=== PATIENT | male | born 1950 | race Caucasian/White ===

== ENCOUNTER 2021-02-06 08:41 | Inpatient (IN) | payer OTHER ==
[~2021-02-06] VITALS: Ht 175.3 cm; Wt 124.4 kg
--- NOTE | ~2021-02-06 | EMS ---
[address] [address] EMS Patient Care Report Name: REMY GALVIN Room: [address] IN [facility]#: [id number] Admission: 02/06/21 Attend Phys: Reji Sprague Discharge: Date of : 52 Report #: [id number] THIS REPORT FOR: //name// Report Transmitted: 02/06/2021 13:08 EMS Care Summary [facility] Incident [id number] @ 02/06/2021 07:31 Incident Location [address] [place] [address] Patient REMY GALVIN Male, 70 Years 1950 Patient Address [address] [place] [address] Patient History Chronic Obstructive Pulmonary Disease (COPD),Diabetes,Hypertension (HTN),Morbid Obesity,Anxiety,Edema, Patient Allergies No known allergies, Patient Medications Atorvastatin, Omeprazole, Novolog, Furosemide, Pramipexole, Duloxetine, Gabapentin, Tylenol, Cyclobenzaprine, Carvedilol, Januvia, Chief Complaint I have been feeling weak Disposition Transported No Lights/[place] Dispatch Reason Sick Person Transported To [facility] Narrative Med 1 response requested to [address] [place] [address] for a possible stroke. Med 1 copied the call and began our response to the scene. We arrived on scene without [address] [place] [address] EMS Patient Care Report Name: REMY GALVIN Room: [place] [address] ADM [place] ..#: [id number] Admission: 02/06/21 Attend Phys: Reji Sprague Discharge: Date of : 52 Report #: [id number] incident. We were met at the ambulance by the caller. Patient was located sitting just inside the living room in a recliner. Patient alert with a GCS of 15. Patient stated that he's been week for a few days. His advised she believes he is having a stroke. When she asked him to stick out his tongue, it moved to the right. She also thought he was having slurred speech but that subsided prior to EMS arrival. Patient denied history of TIA or stroke. He was assessed on the stroke and MEND exam in which he was negative. Patient was noted to have edema and weeping to the lower legs. Patient stated that it increased in the few days prior. Vitals were assessed at his side. We requested fire to assist us in lifting the patient as he is not able to bare weight. Patient was moved to the stair chair where he was secured. He was then taken to the cot outside where he was moved over. He was covered and secured. He was placed into the ambulance. Vitals were monitored. 12 lead ECG obtained. IV access obtained in the right AC. We began our response to [place]'s non emergent. Patient was monitored with no acute changes in condition. Report called in to the ER via med radio 15 min prior. Upon arrival to the ER patient was taken inside and to ER 10 where he was moved. Report was given to the DR taking over care. Signatures were obtained and care was transferred. Med 1 cleared to return to service. Initial Vitals @08:33P: 110,R: 22,BP: 114/74,Pain: 2/10,GCS: 15,EtCO2: 44,SpO2: 98,Revised Trauma: 12, @07:43P: 104,R: 16,BP: 140/90,Pain: 2/10,GCS: 15,Glucose: 170,EtCO2: 40,SpO2: 97,Revised Trauma: 12, @08:18P: 115,R: 22,BP: 138/70,Pain: 2/10,GCS: 15,EtCO2: 40,SpO2: 96,Revised Trauma: 12, @08:08P: 118,R: 24,BP: 128/70,Pain: 2/10,GCS: 15,EtCO2: 33,SpO2: 96,Revised Trauma: 12, @08:00P: 78,R: 16,BP: 118/70,Pain: 2/10,GCS: 15,EtCO2: 38,SpO2: 97,Revised Trauma: 12, Assessments @07:43MENTAL:Time Oriented,Event Oriented,Person Oriented,Place Oriented,SKIN:HEENT:LUNG SOUNDS:ABDOMEN:PELVIS//GI:EXTREMITIES:Right Leg: Edema,Right Arm: Weakness,Capillary Refill: Left Upper: < 2 Sec,Left Arm: Weakness,Capillary Refill: Right Upper: < 2 Sec,Left Leg: Weakness,Right Leg: Weakness,Left Leg: Edema,PULSE:Radial: 2+ Normal,NEURO:@08:35MENTAL:Person Oriented,Place Oriented,Time Oriented,Event Oriented,SKIN:HEENT:LUNG SOUNDS:ABDOMEN:PELVIS//GI:EXTREMITIES:Left Arm: Weakness,Right Leg: Edema,Left Leg: Edema,Right Leg: Weakness,Right Arm: Weakness,Left Leg: Weakness,PULSE:NEURO: [facility] [address] [place] [address] EMS Patient Care Report Name: REMY GALVIN Room: [address] IN [facility]#: [id number] Admission: 02/06/21 Attend Phys: Reji Sprague Discharge: Date of : 52 Report #: [id number] Impression Generalized Weakness Procedures @07:42 ALS Assessment Response: UnchangedSucceeded @07:46 IV Therapy - Saline Lock 10cc (20 ga) Site: Antecubital-Right Response: UnchangedSucceeded @07:44 Oxygen FlowRate: 4 Device: CO2 Nasal Cannula Response: UnchangedSucceeded @08:08 12-Lead ECG Response: UnchangedSucceeded @08:33 12-Lead ECG Response: UnchangedSucceeded Timeline 07:30,Call Received 07:31,Dispatched 07:34,En Route 07:40,On Scene 07:42,At Patient 07:42,ALS Assessment,Response: UnchangedSucceeded, 07:43,BP: 140/90 M,PULSE: 104,RR: 16 R,SPO2: 97 Ox,ETCO2: 40 ,B,PAIN: 2,GCS: 15, 07:44,Oxygen FlowRate: 4 Device: CO2 Nasal Cannula Response: UnchangedSucceeded, 07:46,IV Therapy - Saline Lock 10cc 20 ga Site: Antecubital-Right,Response: UnchangedSucceeded, 08:00,BP: 118/70 M,PULSE: 78,RR: 16 R,SPO2: 97 Ox,ETCO2: 38 ,BG: ,PAIN: 2,GCS: 15, 08:06,Depart Scene 08:08,12-Lead ECG,Response: UnchangedSucceeded, 08:08,BP: 128/70 M,PULSE: 118,RR: 24 R,SPO2: 96 Ox,ETCO2: 33 ,BG: ,PAIN: 2,GCS: 15, 08:18,BP: 138/70 M,PULSE: 115,RR: 22 R,SPO2: 96 Ox,ETCO2: 40 ,BG: ,PAIN: 2,GCS: 15, 08:33,12-Lead ECG,Response: UnchangedSucceeded, 08:33,BP: 114/74 M,PULSE: 110,RR: 22 R,SPO2: 98 Ox,ETCO2: 44 ,BG: ,PAIN: 2,GCS: 15, 08:38,At Destination 09:18,Call Closed Disclaimer v1.1 Copyright 2020 [employer] This EMS Care Summary contains data elements from the applicable legal record (which may be displayed differently). It is designed to provide pertinent information for the following purposes: continuity of care, clinical quality, and state data reporting. The complete [place] [address] EMS Patient Care Report Name: REMY GALVIN Room: [place] [address] ADM [place] [facility]#: [id number] Admission: 02/06/21 Attend Phys: Reji Sprague Discharge: Date of : 52 Report #: [id number] and administrators of the receiving hospital in [email or web address]'s Patient Tracker. All data is provided "as is."
[2021-02-06 08:44] VITALS: BP 124/65
[2021-02-06] MEDS ORDERED: CARVEDILOL6.25 M1 PO (08:45)
[2021-02-06] MEDS ORDERED: B COMPLEX1 EACH PO (08:45)
[2021-02-06] MEDS ORDERED: LIPITOR 20 MG T20 M1 PO (08:45)
[2021-02-06] MEDS ORDERED: DULOXETINE HCL60 MG PO (08:46)
[2021-02-06] MEDS ORDERED: NEURONTIN 300M300 M2 PO (08:46)
[2021-02-06] MEDS ORDERED: FLEXERIL PO (08:46)
[2021-02-06] MEDS ORDERED: JANUVIA50 MG PO (08:46)
[2021-02-06] MEDS ORDERED: OMEPRAZOLE 20 M20 M1 PO (08:47)
[2021-02-06] MEDS ORDERED: MIRAPEX0.5 MG PO (08:47)
[2021-02-06] MEDS ORDERED: NOVOLOG FL100 UNIT/M SUBQ (08:47)
[2021-02-06] MEDS ORDERED: METOLAZONE 2.52.5 M1 PO (08:47)
[2021-02-06] MEDS ORDERED: APAP W/CODEINE1 TA2 PO (08:48)
[2021-02-06] MEDS ORDERED: TRESIBA100 UNIT/1 SUBQ (08:48)
[2021-02-06] MEDS ORDERED: FLOMAX0.4 MG PO (08:48)
[2021-02-06 09:05] LABS: HEMATOCRIT 34.7 % (42.0-52.0); HEMOGLOBIN 11.5 gm/dL (14.0-18.0); MCH 28.9 pg (26.0-34.0); MCHC 33.1 g/dL (28.0-37.0); MCV 87.3 fL (80.0-100.0); MPV 8.2 fl. (7.2-11.1); NUCLEATED RBCS 0 /100WBC; PLATELET COUNT* 191 thou/uL (150-400); RBC 3.98 mil/uL (4.50-6.00)
--- NOTE | 2021-02-06 09:09 | EKG ---
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 : 1950 Requested By: Js Virk Order Number: [id number] MD: Dominic Vazquez Measurements Intervals [place] Rate: 107 P: 63 VT: 169 QRS: 48 QRSD: 94 T: 130 QT: 355 QTc: 474 Interpretive Statements Sinus tachycardia Atrial premature complex Probable left atrial enlargement Nonspecific repol abnormality, lateral leads No previous ECG available for comparison Electronically Signed On 02-06-2021 9:09:03 CDT by Dominic Vazquez [email or web address] <ELECTRONICALLY SIGNED> By: Dominic Vazquez MD, [facility] 02/06/21908 4 4 Dominic Vazquez MD, FAC /EPI
[2021-02-06 09:15] LABS: CALCIUM 8.7 mg/dL (8.5-10.1); CREATININE 1.7 mg/dL (0.6-1.3)
[2021-02-06 09:18] LABS: POTASSIUM 2.9 mmol/L (3.5-5.1)
[2021-02-06 09:25] LABS: ALBUMIN 2.8 g/dL (3.4-5.0); TOTAL BILIRUBIN 1.5 mg/dL (<0.1-1.0); TOTAL PROTEIN 7.3 g/dL (6.4-8.2)
[2021-02-06 10:25] LABS: ABSOLUTE LYMPHOCYTES 0.6 thou/uL (0.8-5.3); ABSOLUTE MONOCYTES 0.1 thou/uL (0.0-1.2); ABSOLUTE NEUTROPHILS 9.3 thou/uL (1.6-8.1)
[2021-02-06 10:26] LABS: PLATELET ESTIMATE ADEQUATE
[2021-02-06 10:27] LABS: GIANT PLATELETS OCCASIONAL
[2021-02-06 10:28] LABS: ANISOCYTOSIS 1+; HYPOCHROMASIA 1+
[2021-02-06 16:51] VITALS: BP 118/55
[2021-02-06 20:43] VITALS: BP 110/68
[2021-02-07 00:59] VITALS: BP 104/55
[2021-02-07 04:49] LABS: ABSOLUTE LYMPHOCYTES 0.3 thou/uL (0.8-5.3); ABSOLUTE MONOCYTES 0.6 thou/uL (0.0-1.2); ABSOLUTE NEUTROPHILS 9.9 thou/uL (1.6-8.1); BASOPHILS 0.4 %; EOSINOPHILS 0.3 %; HEMATOCRIT 31.1 % (42.0-52.0); HEMOGLOBIN 10.2 gm/dL (14.0-18.0); LYMPHOCYTES 3.1 %; MCH 28.8 pg (26.0-34.0); MCHC 32.7 g/dL (28.0-37.0); MCV 87.8 fL (80.0-100.0); MONOCYTES 5.6 %; MPV 8.4 fl. (7.2-11.1); NUCLEATED RBCS 0 /100WBC; PLATELET COUNT* 174 thou/uL (150-400); POLYS 90.6 %; RBC 3.54 mil/uL (4.50-6.00); RDW-CV 18.8 % (10.5-14.5); WBC 10.9 thou/uL (4.0-11.0)
[2021-02-07 05:05] LABS: CALCIUM 8.1 mg/dL (8.5-10.1); CREATININE 1.4 mg/dL (0.6-1.3); TOTAL BILIRUBIN 0.6 mg/dL (<0.1-1.0)
[2021-02-07 05:09] LABS: POTASSIUM 2.9 mmol/L (3.5-5.1)
[2021-02-07 05:23] VITALS: BP 111/53
[2021-02-07 08:30] VITALS: BP 118/51
[2021-02-07 12:00] VITALS: BP 110/63
[2021-02-07 16:00] VITALS: BP 120/66
[2021-02-07 20:00] VITALS: BP 107/44
[2021-02-08 00:34] VITALS: BP 144/56
[2021-02-08 04:00] VITALS: BP 120/87
[2021-02-08 08:06] VITALS: BP 128/59
[2021-02-08 10:53] LABS: URINE BILIRUBIN NEGATIVE (Negative); URINE BLOOD TRACE (Negative); URINE CLARITY CLEAR; URINE COLOR YELLOW; URINE GLUCOSE-RANDOM NEGATIVE (Negative); URINE KETONES NEGATIVE (Negative); URINE LEUKOCYTES-REFLEX NEGATIVE (Negative); URINE NITRITE-REFLEX NEGATIVE (Negative); URINE PROTEIN TRACE (Negative); URINE SPECIFIC GRAVITY 1.025 (1.005-1.030); URINE UROBILINOGEN 0.2 E.U./dl (0.2-1.0)
[2021-02-08 12:00] VITALS: BP 100/50
[2021-02-08 15:10] LABS: ABSOLUTE BASOPHILS 0.1 thou/uL (0.0-0.2); ABSOLUTE EOSINOPHILS 0.2 thou/uL (0.0-0.7); ABSOLUTE LYMPHOCYTES 0.5 thou/uL (0.8-5.3); ABSOLUTE MONOCYTES 0.9 thou/uL (0.0-1.2); BASOPHILS 0.7 %; EOSINOPHILS 2.9 %; HEMATOCRIT 32.6 % (42.0-52.0); HEMOGLOBIN 10.7 gm/dL (14.0-18.0); LYMPHOCYTES 6.2 %; MCH 29.1 pg (26.0-34.0); MCHC 32.9 g/dL (28.0-37.0); MCV 88.6 fL (80.0-100.0); MONOCYTES 11.5 %; MPV 8.4 fl. (7.2-11.1); NUCLEATED RBCS 0 /100WBC; PLATELET COUNT* 193 thou/uL (150-400); POLYS 78.7 %; RBC 3.68 mil/uL (4.50-6.00); RDW-CV 18.6 % (10.5-14.5); WBC 7.6 thou/uL (4.0-11.0)
[2021-02-08 15:26] LABS: CALCIUM 8.3 mg/dL (8.5-10.1); CREATININE 1.4 mg/dL (0.6-1.3); POTASSIUM 3.6 mmol/L (3.5-5.1); TOTAL BILIRUBIN 0.3 mg/dL (<0.1-1.0); TOTAL PROTEIN 6.1 g/dL (6.4-8.2)
[2021-02-08 16:00] VITALS: BP 133/61
[2021-02-08 20:00] VITALS: BP 123/50
[2021-02-09] VITALS (7 sets, daily range): BP systolic 111–138; BP diastolic 50–79
[2021-02-09] MEDS ORDERED: FUROSEMIDE 40 M40 MG PO (03:31)
[2021-02-10 00:34] VITALS: BP 126/48
[2021-02-10 04:24] VITALS: BP 133/53
[2021-02-10 07:57] VITALS: BP 97/46
[2021-02-10 08:23] LABS: HEMOGLOBIN 9.8 gm/dL (14.0-18.0); MPV 8.3 fl. (7.2-11.1); NUCLEATED RBCS 0 /100WBC; WBC 6.2 thou/uL (4.0-11.0)
[2021-02-10 08:27] LABS: ABSOLUTE BASOPHILS 0.1 thou/uL (0.0-0.2); ABSOLUTE EOSINOPHILS 0.5 thou/uL (0.0-0.7); ABSOLUTE LYMPHOCYTES 0.8 thou/uL (0.8-5.3); ABSOLUTE MONOCYTES 0.6 thou/uL (0.0-1.2); ABSOLUTE NEUTROPHILS 4.2 thou/uL (1.6-8.1); BASOPHILS 0.8 %; EOSINOPHILS 7.9 %; LYMPHOCYTES 13.5 %; MCH 29.1 pg (26.0-34.0); MCHC 32.8 g/dL (28.0-37.0); MCV 88.7 fL (80.0-100.0); PLATELET COUNT* 209 thou/uL (150-400); POLYS 67.8 %; RBC 3.38 mil/uL (4.50-6.00); RDW-CV 18.1 % (10.5-14.5)
[2021-02-10 08:53] LABS: ALBUMIN 1.8 g/dL (3.4-5.0); CALCIUM 8.2 mg/dL (8.5-10.1); CREATININE 1.5 mg/dL (0.6-1.3); POTASSIUM 3.7 mmol/L (3.5-5.1); TOTAL BILIRUBIN 0.4 mg/dL (<0.1-1.0); TOTAL PROTEIN 5.6 g/dL (6.4-8.2)
[2021-02-10 12:50] VITALS: BP 108/59
[2021-02-10] MEDS ORDERED: CIPRO500 M1 PO (13:39)
[2021-02-10 14:53] VITALS: BP 108/59
[2021-02-10 16:21] VITALS: BP 108/59
== END 2021-02-10 15:30 | disposition home or self-care (01) | DRG 871 ==
LOC: M.ERS 08:41 → M.TBA-ER 12:03 → M.2W 12:03
PROVIDERS: Family Medicine; Internal Medicine; ADMIT Internal Medicine; ATTEND Internal Medicine
DX: A41.9 Sepsis, unspecified organism (principal); N17.0 Acute kidney failure with tubular necrosis; L03.116 Cellulitis of left lower limb; L03.115 Cellulitis of right lower limb; M00.9 Pyogenic arthritis, unspecified; N39.0 Urinary tract infection, site not specified; E44.0 Moderate protein-calorie malnutrition; Z68.41 Body mass index [BMI] 40.0-44.9, adult; Z20.822 Contact with and (suspected) exposure to COVID-19; J44.9 Chronic obstructive pulmonary disease, unspecified; R65.20 Severe sepsis without septic shock; I50.9 Heart failure, unspecified; E11.65 Type 2 diabetes mellitus with hyperglycemia; E11.51 Type 2 diabetes mellitus with diabetic peripheral angiopathy without gangrene; D63.8 Anemia in other chronic diseases classified elsewhere; K75.9 Inflammatory liver disease, unspecified; E87.6 Hypokalemia; Z23 Encounter for immunization

== ENCOUNTER 2021-05-19 17:14 | Inpatient (IN) | payer OTHER ==
[~2021-05-19] VITALS: Ht 172.7 cm; Wt 111.6 kg
--- NOTE | ~2021-05-19 | EMS ---
[place] [address] EMS Patient Care Report Name: EDWIN GALVIN Room: [address] IN [facility]#: [id number] Admission: 05/19/21 Attend Phys: Reji Sullivan Discharge: Date of : 52 Report #: [id number] THIS REPORT FOR: //name// Report Transmitted: 05/19/2021 18:22 EMS Care Summary [facility] Incident [id number] @ 05/19/2021 15:47 Incident Location [address] [place] [address] Patient EDWIN GALVIN Male, 70 Years 1950 Patient Address [address] [place] [address] Patient History Congestive Heart Failure (CHF),Chronic Obstructive Pulmonary Disease (COPD),Atrial Fibrillation,Type 2 Diabetes, Patient Allergies No known allergies, Patient Medications Carvedilol, Tamsulosin, Aspirin, Cyclobenzaprine, Novolog, Duloxetine, Hydrocodone, Gabapentin, Omeprazole, Atorvastatin, Januvia, Furosemide, Pramipexole, Potassium, Chief Complaint Open wounds Disposition Transported No Lights/[place] Dispatch Reason Falls Transported To [facility] Medic One was dispatched to a local [place] [address] EMS Patient Care Report Name: EDWIN GALVIN Room: [address] IN [facility]#: [id number] Admission: 05/19/21 Attend Phys: Reji Sullivan Discharge: Date of : 52 Report #: [id number] had fallen out of his chair. [place] [facility] responded from the station and arrived on scene without incident. Upon arrival to the scene, the patient, (Edwin Galvin - goes by Redd) was found seated up against his chair on the ground. Redd was incontinent to stool, and his stated she was not sure if his catheter was properly placed still. Redd's , Kristin, stated that he had been on the ground for at least two hours. Initial assessment was performed, and during that assessment, a large open wound was noted on Redd's right side of his chest, under the axillary area. Redd stated he did not know about that. When moving Redd to a blanket in order to transfer him to the cot, he was also noted to have pressure ulcers on his back and buttocks. Redd's family was advised of this, and informed that [facility] would not be an appropriate destination, they then decided to transport to [facility]. Redd was transferred to a lying position on the floor in order to place him on a blanket to get him to the cot. A team lift, at each corner, was employed in order to transfer Redd to the cot. Redd was taken outside to the cot. He was covered with multiple blankets, and all seat belts were applied. He was taken to the ambulance and loaded without incident. Redd was unsure of how long he had been on the floor, or how long he had been incontinent of stool. He stated that he has been weak for months, and not able to get around without significant assistance. He has called EMS numerous times for assistance in getting back to his chair from his commode in the living room. Redd's family is unable to adequately care for Redd. Once Redd was in the ambulance, baseline vital signs were obtained. He was placed on the band teacher and a 5-Lead EKG was obtained which showed an atrial fibrillation rhythm with premature ventricular complexes. IV access was obtained as documented in the flowchart of this report. Non-emergency transport to the hospital began. During transport, no changes in patient condition were noted. Report was called to the receiving hospital. Upon arrival to the facility, Redd was unloaded and taken inside without incident. He was taken into the hospital room and transferred to the bed via a team lift. Report was given to nursing staff, signatures were obtained, Initial Vitals @16:29P: 114,R: 20,BP: 124/62,GCS: 14,Glucose: 64,SpO2: 92,Revised Trauma: 12, @16:41P: 115,R: 20,BP: 127/59,GCS: 14,SpO2: 90,Revised Trauma: 12, @17:10P: 110,R: 20,BP: 127/77,GCS: 15,SpO2: 94,Revised Trauma: 12, @16:54P: 111,R: 20,BP: 138/106,GCS: 15,SpO2: 96,Revised Trauma: 12, Assessments @15:58MENTAL:Event Oriented,Time Oriented,Place Oriented,Person Oriented,SKIN:Other,HEENT:Eyes: Left Pupil: 3-mm,Eyes: Right Pupil: 3-mm,LUNG SOUNDS:ABDOMEN:PELVIS//GI:Incontinence,Pelvis GUOther,EXTREMITIES:Capillary [address] [address] EMS Patient Care Report Name: EDWIN GALVIN Room: [address] IN [place].#: [id number] Admission: 05/19/21 Attend Phys: Reji Sullivan Discharge: Date of : 52 Report #: [id number] Refill: Right Upper: < 2 Sec,Left Leg: Edema,Right Leg: Edema,PULSE:Radial: 2+ Normal,NEURO:@16:53MENTAL:Time Oriented,Event Oriented,Place Oriented,Person Oriented,SKIN:No Abnormalities,HEENT:Head/Face: No Abnormalities,Eyes: No Abnormalities,Neck/Airway: No Abnormalities,LUNG SOUNDS:General: No Abnormalities,Left Upper: No Abnormalities,Right Upper: No Abnormalities,Left Lower: No Abnormalities,Right Lower: No Abnormalities,ABDOMEN:General: No Abnormalities,Left Upper: No Abnormalities,Right Upper: No Abnormalities,Left Lower: No Abnormalities,Right Lower: No Abnormalities,PELVIS//GI:EXTREMITIES:Left Arm: No Abnormalities,Right Arm: No Abnormalities,Left Leg: No Abnormalities,Right Leg: No Abnormalities,PULSE:NEURO:No Abnormalities, Impression Skin infection Procedures @16:02 ALS Assessment Response: UnchangedSucceeded @16:31 IV Therapy - Normal Saline (.9% NaCl) 10cc (18 ga) Site: Antecubital-Right Response: UnchangedSucceeded @16:29 3-Lead ECG Response: UnchangedSucceeded Timeline 15:47,Call Received 15:47,Dispatched 15:48,En Route 15:54,On Scene 15:55,At Patient 16:02,ALS Assessment,Response: UnchangedSucceeded, 16:29,BP: 124/62 M,PULSE: 114,RR: 20 R,SPO2: 92 Ox,ETCO2: ,B,PAIN: ,GCS: 14, 16:29,3-Lead ECG,Response: UnchangedSucceeded, 16:30,Depart Scene 16:31,IV Therapy - Normal Saline (.9% NaCl) 10cc 18 ga Site: Antecubital-Right,Response: UnchangedSucceeded, 16:41,BP: 127/59 M,PULSE: 115,RR: 20 R,SPO2: 90 Ox,ETCO2: ,BG: ,PAIN: ,GCS: 14, 16:54,BP: 138/106 M,PULSE: 111,RR: 20 R,SPO2: 96 Ox,ETCO2: ,BG: ,PAIN: ,GCS: 15, 17:10,BP: 127/77 M,PULSE: 110,RR: 20 R,SPO2: 94 Ox,ETCO2: ,BG: ,PAIN: ,GCS: 15, 17:15,At Destination 18:01,Call Closed Disclaimer v1.1 Copyright 2021 [employer] This EMS Care Summary contains data elements from the applicable legal record (which may be displayed differently). It [place] [address] EMS Patient Care Report Name: EDWIN GALVIN Room: [place] [address] ADM [place] [facility]#: [id number] Admission: 05/19/21 Attend Phys: Reji Sullivan Discharge: Date of : 52 Report #: [id number] information for the following purposes: continuity of care, clinical quality, and state data reporting. The complete legal record is available to ED staff and administrators of the receiving hospital in [facility]'s Patient Tracker. All data is provided "as is."
--- NOTE | ~2021-05-19 | EMS ---
[facility] [address] [place] [address] EMS Patient Care Report Name: REMY GALVIN Room: [facility]#: [id number] Admission: 05/19/21 Attend Phys: Discharge: Date of : 52 Report #: [id number] THIS REPORT FOR: //name// Report Transmitted: 05/19/2021 17:21 EMS Care Summary [facility] Incident [id number] @ 05/19/2021 15:47 Incident Location [address] [place] [address] Patient REMY GALVIN Male, 70 Years 1950 Patient Address [address] [place] [address] Patient History Congestive Heart Failure (CHF),Chronic Obstructive Pulmonary Disease (COPD),Atrial Fibrillation,Type 2 Diabetes, Patient Allergies No known allergies, Patient Medications Carvedilol, Tamsulosin, Aspirin, Cyclobenzaprine, Novolog, Duloxetine, Hydrocodone, Gabapentin, Omeprazole, Atorvastatin, Januvia, Furosemide, Pramipexole, Potassium, Chief Complaint Open wounds Disposition Transported No Lights/[place] Dispatch Reason Falls Transported To [facility] One was dispatched to a local residence for a patient who [facility] [address] [place] [address] EMS Patient Care Report Name: REMY GALVIN Room: [facility]#: [id number] Admission: 05/19/21 Attend Phys: Discharge: Date of : 52 Report #: [id number] had fallen out of his chair. [facility] responded from the station and arrived on scene without incident. Upon arrival to the scene, the patient, (Remy Galvin - goes by Redd) was found seated up against his chair on the ground. Redd was incontinent to stool, and his stated she was not sure if his catheter was properly placed still. Redd's , Kristin, stated that he had been on the ground for at least two hours. Initial assessment was performed, and during that assessment, a large open wound was noted on Redd's right side of his chest, under the axillary area. Redd stated he did not know about that. When moving Redd to a blanket in order to transfer him to the cot, he was also noted to have pressure ulcers on his back and buttocks. Redd's family was advised of this, and informed that [facility] would not be an appropriate destination, they then decided to transport to [facility]. Redd was transferred to a lying position on the floor in order to place him on a blanket to get him to the cot. A team lift, at each corner, was employed in order to transfer Redd to the cot. Redd was taken outside to the cot. He was covered with multiple blankets, and all seat belts were applied. He was taken to the ambulance and loaded without incident. Redd was unsure of how long he had been on the floor, or how long he had been incontinent of stool. He stated that he has been weak for months, and not able to get around without significant assistance. He has called EMS numerous times for assistance in getting back to his chair from his commode in the living room. Redd's family is unable to adequately care for Redd. Once Redd was in the ambulance, baseline vital signs were obtained. He was placed on the media monitor and a 5-Lead EKG was obtained which showed an atrial fibrillation rhythm with premature ventricular complexes. IV access was obtained as documented in the flowchart of this report. Non-emergency transport to the hospital began. During transport, no changes in patient condition were noted. Report was called to the receiving hospital. Upon arrival to the facility, Redd was unloaded and taken inside without incident. He was taken into the hospital room and transferred to the bed via a team lift. Report was given to nursing staff, signatures were obtained, Initial Vitals @16:29P: 114,R: 20,BP: 124/62,GCS: 14,Glucose: 64,SpO2: 92,Revised Trauma: 12, @16:41P: 115,R: 20,BP: 127/59,GCS: 14,SpO2: 90,Revised Trauma: 12, @17:10P: 110,R: 20,BP: 127/77,GCS: 15,SpO2: 94,Revised Trauma: 12, @16:54P: 111,R: 20,BP: 138/106,GCS: 15,SpO2: 96,Revised Trauma: 12, Assessments @15:58MENTAL:Event Oriented,Time Oriented,Place Oriented,Person Oriented,SKIN:Other,HEENT:Eyes: Left Pupil: 3-mm,Eyes: Right Pupil: 3-mm,LUNG SOUNDS:ABDOMEN:PELVIS//GI:Incontinence,Pelvis GUOther,EXTREMITIES:Capillary [address] [place] [address] EMS Patient Care Report Name: REMY GALVIN Room: [facility]#: [id number] Admission: 05/19/21 Attend Phys: Discharge: Date of : 52 Report #: [id number] Refill: Right Upper: < 2 Sec,Left Leg: Edema,Right Leg: Edema,PULSE:Radial: 2+ Normal,NEURO:@16:53MENTAL:Time Oriented,Event Oriented,Place Oriented,Person Oriented,SKIN:No Abnormalities,HEENT:Head/Face: No Abnormalities,Eyes: No Abnormalities,Neck/Airway: No Abnormalities,LUNG SOUNDS:General: No Abnormalities,Left Upper: No Abnormalities,Right Upper: No Abnormalities,Left Lower: No Abnormalities,Right Lower: No Abnormalities,ABDOMEN:General: No Abnormalities,Left Upper: No Abnormalities,Right Upper: No Abnormalities,Left Lower: No Abnormalities,Right Lower: No Abnormalities,PELVIS//GI:EXTREMITIES:Left Arm: No Abnormalities,Right Arm: No Abnormalities,Left Leg: No Abnormalities,Right Leg: No Abnormalities,PULSE:NEURO:No Abnormalities, Impression Skin infection Procedures @16:02 ALS Assessment Response: UnchangedSucceeded @16:31 IV Therapy - Normal Saline (.9% NaCl) 10cc (18 ga) Site: Antecubital-Right Response: UnchangedSucceeded @16:29 3-Lead ECG Response: UnchangedSucceeded Timeline 15:47,Call Received 15:47,Dispatched 15:48,En Route 15:54,On Scene 15:55,At Patient 16:02,ALS Assessment,Response: UnchangedSucceeded, 16:29,BP: 124/62 M,PULSE: 114,RR: 20 R,SPO2: 92 Ox,ETCO2: ,B,PAIN: ,GCS: 14, 16:29,3-Lead ECG,Response: UnchangedSucceeded, 16:30,Depart Scene 16:31,IV Therapy - Normal Saline (.9% NaCl) 10cc 18 ga Site: Antecubital-Right,Response: UnchangedSucceeded, 16:41,BP: 127/59 M,PULSE: 115,RR: 20 R,SPO2: 90 Ox,ETCO2: ,BG: ,PAIN: ,GCS: 14, 16:54,BP: 138/106 M,PULSE: 111,RR: 20 R,SPO2: 96 Ox,ETCO2: ,BG: ,PAIN: ,GCS: 15, 17:10,BP: 127/77 M,PULSE: 110,RR: 20 R,SPO2: 94 Ox,ETCO2: ,BG: ,PAIN: ,GCS: 15, 17:15,At Destination 18:01,Call Closed Disclaimer v1.1 Copyright 2021 [employer] This EMS Care Summary contains data elements from the applicable legal record (which may be displayed differently). It is [place] [address] EMS Patient Care Report Name: REMY GALVIN Room: [facility]#: [id number] Admission: 05/19/21 Attend Phys: Discharge: Date of : 52 Report #: [id number] information for the following purposes: continuity of care, clinical quality, and state data reporting. The complete legal record is available to ED staff and administrators of the receiving hospital in [employer]'s Patient Tracker. All data is provided "as is."
[~2021-05-19 17:14] MED LIST: APAP W/CODEINE1 TA2 PO; B COMPLEX1 EACH PO; CARVEDILOL6.25 M1 PO; CIPRO500 M1 PO; DULOXETINE HCL60 MG PO; FLEXERIL PO; FLOMAX0.4 MG PO; FUROSEMIDE 40 M40 MG PO; JANUVIA50 MG PO; LIPITOR 20 MG T20 M1 PO; METOLAZONE 2.52.5 M1 PO; MIRAPEX0.5 MG PO; NEURONTIN 300M300 M2 PO; NOVOLOG FL100 UNIT/M SUBQ; OMEPRAZOLE 20 M20 M1 PO; TRESIBA100 UNIT/1 SUBQ
[2021-05-19 17:16] VITALS: BP 136/103
[2021-05-19] MEDS ORDERED: HYDROCODON-ACE1 EAC7 PO (18:25)
[2021-05-19] MEDS ORDERED: MEDI-LYTE TABL1 EACH PO (18:25)
[2021-05-19 18:31] LABS: URINE BLOOD 3+ (Negative); URINE CLARITY CLEAR; URINE COLOR YELLOW; URINE GLUCOSE-RANDOM NEGATIVE (Negative); URINE KETONES TRACE (Negative); URINE NITRITE-REFLEX NEGATIVE (Negative); URINE PROTEIN TRACE (Negative)
[2021-05-19 19:05] LABS: BACTERIA-REFLEX 1-9 Few /HPF (None Seen); CASTS None Seen /LPF (None Seen); CRYSTALS None Seen /LPF (None Seen); ICTOTEST (BILI CONFIRMATORY) Positive (Negative); SQUAMOUS 4-10 Moderate /LPF (0-3); URINE BILIRUBIN 1+ (Negative); URINE LEUKOCYTES-REFLEX 2+ (Negative); URINE RBC 3-10 Few /HPF (0-2); URINE WBC-REFLEX 6-15 Few /HPF (0-5)
[2021-05-19 19:23] LABS: HEMOGLOBIN 11.3 gm/dL (14.0-18.0); MCHC 31.5 g/dL (28.0-37.0); MCV 82.6 fL (80.0-100.0); MPV 7.2 fl. (7.2-11.1); NUCLEATED RBCS 0 /100WBC; PLATELET COUNT* 417 thou/uL (150-400); RBC 4.36 mil/uL (4.50-6.00); RDW-CV 19.5 % (10.5-14.5); WBC 19.4 thou/uL (4.0-11.0)
[2021-05-19 19:31] LABS: CALCIUM 8.1 mg/dL (8.5-10.1); CREATININE 1.9 mg/dL (0.6-1.3)
[2021-05-19 19:47] LABS: ALBUMIN 1.5 g/dL (3.4-5.0); TOTAL BILIRUBIN 0.6 mg/dL (<0.1-1.0); TOTAL PROTEIN 6.1 g/dL (6.4-8.2)
[2021-05-19 20:24] LABS: ABSOLUTE MONOCYTES 0.6 thou/uL (0.0-1.2); ABSOLUTE NEUTROPHILS 17.8 thou/uL (1.6-8.1)
[2021-05-19 21:49] VITALS: BP 89/59
[2021-05-19 22:27] VITALS: BP 143/71
[2021-05-19 22:54] LABS: BE 7.3 mmol/L (-2 to +3); PCO2 38.7 mmHg (35.0-45.0); pH 7.517 (7.340-7.450)
[2021-05-19 23:04] LABS: PO2 374.9 mmHg (75.0-100.0)
[2021-05-19 23:26] VITALS: BP 114/69
[2021-05-20] VITALS (25 sets, daily range): BP systolic 110–135; BP diastolic 54–73
[2021-05-20] MEDS ORDERED: VAZALORE81 MG PO (05:47)
[2021-05-20 07:18] LABS: ABSOLUTE LYMPHOCYTES 0.4 thou/uL (0.8-5.3); ABSOLUTE MONOCYTES 0.2 thou/uL (0.0-1.2); ABSOLUTE NEUTROPHILS 15.6 thou/uL (1.6-8.1); BASOPHILS 0.1 %; HEMOGLOBIN 9.8 gm/dL (14.0-18.0); LYMPHOCYTES 2.4 %; MCH 25.9 pg (26.0-34.0); MCHC 31.5 g/dL (28.0-37.0); MCV 82.2 fL (80.0-100.0); MONOCYTES 1.4 %; MPV 7.6 fl. (7.2-11.1); NUCLEATED RBCS 0 /100WBC; POLYS 96.1 %; RBC 3.77 mil/uL (4.50-6.00); RDW-CV 19.6 % (10.5-14.5); WBC 16.2 thou/uL (4.0-11.0)
[2021-05-20 07:20] LABS: PLATELET COUNT* 323 thou/uL (150-400)
[2021-05-20 08:42] LABS: BE 7.2 mmol/L (-2 to +3); PCO2 41.6 mmHg (35.0-45.0); pH 7.493 (7.340-7.450)
[2021-05-20 08:51] LABS: PO2 161.1 mmHg (75.0-100.0)
[2021-05-20 09:31] LABS: ALBUMIN 1.2 g/dL (3.4-5.0); CALCIUM 7.6 mg/dL (8.5-10.1); CREATININE 1.3 mg/dL (0.6-1.3); POTASSIUM 3.3 mmol/L (3.5-5.1); TOTAL BILIRUBIN 0.4 mg/dL (<0.1-1.0); TOTAL PROTEIN 4.9 g/dL (6.4-8.2)
--- NOTE | 2021-05-20 11:58 | EKG ---
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1950 Requested By: Js Virk Order Number: [id number] MD: Ricki Miller Measurements Intervals [place] Rate: 110 P: ME: QRS: 57 QRSD: 96 T: 55 QT: 342 QTc: 463 Interpretive Statements Sinus tachycardia with occasional isolated PVCs Low voltage, extremity leads Nonspecific T abnormalities diffusely Compared to ECG 02/06/2021 09:05:4 Low QRS voltage now present T-wave abnormality now present Atrial premature complex(es) no longer present; occasional PVCs are noted Early repolarization no longer present Electronically Signed On 05-20-2021 11:57:45 UR COORDINATOR by Ricki Miller [email or web address] <ELECTRONICALLY SIGNED> By: Ricki Miller MD, [facility] 05/20/21 1157 28 28 Ricki Miller MD, [facility] /EPI
[2021-05-20 17:45] LABS: CALCIUM 8.1 mg/dL (8.5-10.1); CREATININE 1.2 mg/dL (0.6-1.3); POTASSIUM 3.5 mmol/L (3.5-5.1)
[2021-05-21] VITALS (22 sets, daily range): BP systolic 108–167; BP diastolic 54–150
[2021-05-21 05:53] LABS: CALCIUM 8.2 mg/dL (8.5-10.1); CREATININE 1.1 mg/dL (0.6-1.3); POTASSIUM 4.5 mmol/L (3.5-5.1)
[2021-05-21 10:05] LABS: ABSOLUTE LYMPHOCYTES 0.3 thou/uL (0.8-5.3); ABSOLUTE MONOCYTES 0.5 thou/uL (0.0-1.2); ABSOLUTE NEUTROPHILS 14.9 thou/uL (1.6-8.1); BASOPHILS 0.2 %; EOSINOPHILS 0.1 %; HEMOGLOBIN 9.9 gm/dL (14.0-18.0); LYMPHOCYTES 1.8 %; MCH 25.9 pg (26.0-34.0); MCHC 30.8 g/dL (28.0-37.0); MCV 84.1 fL (80.0-100.0); MONOCYTES 3.4 %; MPV 7.5 fl. (7.2-11.1); NUCLEATED RBCS 0 /100WBC; PLATELET COUNT* 345 thou/uL (150-400); POLYS 94.5 %; RBC 3.81 mil/uL (4.50-6.00); RDW-CV 19.4 % (10.5-14.5); WBC 15.8 thou/uL (4.0-11.0)
--- NOTE | 2021-05-21 10:36 | CON ---
[address] [address] CONSULTATION Name: REMY GALVIN Room: [address] ADM IN M.R.#: [id number] Admission: 05/19/21 Attend Phys: Reji Sullivan Discharge: Date of : 52 Report #: [id number] THIS REPORT FOR: cc: Shukri Montano MD, Matthew D MD Blick, David R. MD [facility] ~ cc: Shukri Montano MD DATE OF CONSULTATION: 05/21/2021 CARDIOLOGY CONSULTATION HISTORY OF PRESENT ILLNESS: The patient is a 70-year-old white male who I was asked to see in the hospital today after he was noted to have an abnormal ECG. The history is obtained from some old records. The patient is currently intubated, unresponsive. There are no family members available. The patient has had a hospitalization here at [facility] in 02/2021 when he presented with cellulitis, COPD, diabetes, acute kidney injury and anemia. He was treated with antibiotics. He was told to follow up with his primary care physician. The patient was brought back to the Emergency Room 2 days ago by ambulance. The history is obtained from family members. Apparently, they noticed he was having bedsores, he cannot care for himself. He apparently fell at home, was lying in stool. He had a Joyce inserted. Family noted he had progressive weakness, skin wounds. He apparently was lying on the floor when ambulance arrived. PAST MEDICAL HISTORY: Significant for diabetes, COPD, congestive heart failure. MEDICATIONS: On admission included Lipitor, carvedilol, Celexa, Neurontin, Januvia, metolazone, omeprazole, Flomax, insulin, Lasix, potassium, hydrocodone, aspirin. ALLERGIES: He had no known drug allergies. SOCIAL HISTORY: The patient apparently was not a smoker. PHYSICAL EXAMINATION: VITAL SIGNS: The patient had a blood pressure of 108/60, pulse is 90. He was afebrile. HEENT: He was anicteric. Mucous membranes actually appeared dry. NECK: Neck veins difficult to assess due to obesity. CHEST: Revealed decreased breath sounds in the bases. HEART: Regular rate and rhythm, no significant murmurs. ABDOMEN: Obese. EXTREMITIES: Had pitting edema. He had leg wraps in place. NEUROLOGIC: [place] [address] CONSULTATION Name: REMY GALVIN Room: [address]#: [id number] Admission: 05/19/21 Attend Phys: Reji Sullivan Discharge: Date of : 52 Report #: [id number] DIAGNOSTIC DATA: His ECG on admission 2 days ago showed a sinus rhythm, occasional PVC, poor R-wave progression. On the monitor over the weekend, the patient appeared to have episodes of PACs. His workup, the patient had a portable chest x-ray on admission that showed chronic interstitial infiltrates with no acute abnormality, normal heart size. He had a CT scan of the chest yesterday showed normal heart size, no effusion, hyperinflated lung jacob, scarring. CT scan of the abdomen was performed yesterday without contrast that showed normal heart size, hyperinflated lung jacob. LABORATORY WORK: BUN 43, creatinine 1.1, potassium 4.5. His albumin is only 1.2. High sensitivity troponin was 25. His hemoglobin was 9.8. His COVID antigen stat test was negative. Urinalysis, trace protein. IMPRESSION AND RECOMMENDATIONS: 1. History of premature atrial contractions. There was a rhythm strip that appeared to represent atrial tachycardia. I would recommend echocardiogram. I would not treat at this time. 2. Obesity. 3. Hyperlipidemia. The patient is on a statin drug. 4. Venous stasis. The patient is on diuretics. 5. Diabetes. 6. Respiratory failure Suspect chronic obstructive pulmonary disease. 7. Cellulitis. 8. Anemia. No history of bleeding. 9. Poor conditioning. The patient with falls and weakness. I would check thyroid function studies. <ELECTRONICALLY SIGNED> By: Ty Tidwell MD, FACC 05/21/21 1036 0801 [id number] Tidwell MD, FACC /nt
--- NOTE | 2021-05-21 12:27 | 2DMMODE ---
[place] [address] 2 D/M-MODE ECHOCARDIOGRAM Name: REMY GALVIN Room: [address] IN [facility].#: [id number] Admission: 05/19/21 Attend Phys: Cem Rivera Discharge: Date of : 52 Date of Service: 05/21/21 1226 Report #: [id number] THIS REPORT FOR: cc: Shukri Montano MD, Matthew D MD Blick, David R. MD [facility] ~ APPROVED REPORT Study performed: 05/21/2021 09:19:49 EXAM: Comprehensive 2D, Doppler, and color-flow Echocardiogram Patient Location: In-Patient Room #: 008 Status: routine BSA: 2.22 HR: 75 bpm BP: 128/78 mmHg Rhythm: NSR Other Information Study Quality: Good Indications Hypotension Sepsis 2D Dimensions IVSd: 11.65 (7-11mm) LVOT Diam: 19.55 (18-24mm) LVDd: 54.42 mm PWd: 10.15 (7-11mm) Ascending Ao: 33.29 (22-36mm) LVDs: 33.39 (25-40mm) Aortic Root: 34.64 mm Volumes Left Atrial Volume (Systole) LA ESV Index: 25.70 mL/m2 Aortic Valve AoV Peak Parker.: 2.13 m/s AO Peak Gr.: 18.19 mmHg LVOT Max P.93 mmHg AO Mean Gr.: 11.25 mmHg LVOT Mean P.09 mmHg LVOT Max V: 1.22 m/s AO V2 VTI: 34.91 cm LVOT Mean V: 0.82 m/s ESTRELLITA (VTI): 1.55 cm2 LVOT V1 VTI: 17.97 [place] [address] 2 D/M-MODE ECHOCARDIOGRAM Name: REMY GALVIN Room: [address] IN [facility].#: [id number] Admission: 05/19/21 Attend Phys: Cem Rivera Discharge: Date of : 52 Date of Service: 05/21/21 1226 Report #: [id number] AI Lander: 3.78 m/s2 AI PHT: 338.96 ms Mitral Valve E/A Ratio: 0.60 MV Decel. Time: 223.77 ms MV E Max Parker.: 0.66 m/s MV PHT: 64.89 ms MVA (PHT): 3.39 cm2 TDI E/Lateral E': 5.50 E/Medial E': 6.60 Medial E' Parker.: 0.10 m/s Lateral E' Parker.: 0.12 m/s Pulmonary Valve PV Peak Parker.: 0.97 m/s PV Peak Gr.: 3.78 mmHg Left Ventricle The left ventricle is normal size. There is normal LV segmental wall motion. There is normal left ventricular wall thickness. Left ventricular systolic function is borderline. LVEF is 45-50%. Grade I - abnormal relaxation pattern. Right Ventricle The right ventricle is normal size. The right ventricular systolic function is normal. Atria The left atrium size is normal. The right atrium size is normal. Aortic Valve Mild aortic valve sclerosis. Mild aortic regurgitation. There is no aortic valvular stenosis. Mitral Valve The mitral valve is normal in structure. Mild mitral regurgitation. No evidence of mitral valve stenosis. Tricuspid Valve The tricuspid valve is normal in structure. Unable to assess PA pressure. Trace tricuspid regurgitation. Pulmonic Valve Pulmonic valve is not well visualized. There [place] [address] 2 D/M-MODE ECHOCARDIOGRAM Name: REMY GALVIN Room: [address]#: [id number] Admission: 05/19/21 Attend Phys: Cem Rivera Discharge: Date of : 52 Date of Service: 05/21/21 1226 Report #: [id number] regurgitation. Great Vessels The aortic root is normal in size. IVC is normal in size and collapses >50% with inspiration. Pericardium There is no pericardial effusion. <Conclusion> LVEF is 45-50%. Mild mitral regurgitation. Mild aortic regurgitation. <ELECTRONICALLY SIGNED> By: Ty Tidwell MD, FACC 05/21/21 122 25 25 Ty Tidwell MD, [facility] /INF
[2021-05-21 14:58] LABS: CREATININE 1.3 mg/dL (0.6-1.3); MAGNESIUM 2.4 mg/dL (1.8-2.4); POTASSIUM 4.4 mmol/L (3.5-5.1)
[2021-05-21 15:08] LABS: APTT 29.6 Seconds (25.0-31.3); INR 1.1; PROTIME 10.8 Seconds (9.20-11.50)
[2021-05-22] VITALS (22 sets, daily range): BP systolic 99–150; BP diastolic 54–93
[2021-05-22 05:18] LABS: HEMOGLOBIN 9.1 gm/dL (14.0-18.0); MCH 25.9 pg (26.0-34.0); MCHC 31.2 g/dL (28.0-37.0); MCV 83.1 fL (80.0-100.0); NUCLEATED RBCS 0 /100WBC; PLATELET COUNT* 324 thou/uL (150-400); RBC 3.49 mil/uL (4.50-6.00); RDW-CV 19.2 % (10.5-14.5); WBC 12.1 thou/uL (4.0-11.0)
[2021-05-22 05:34] LABS: ALBUMIN 1.7 g/dL (3.4-5.0); CREATININE 1.1 mg/dL (0.6-1.3); MAGNESIUM 2.3 mg/dL (1.8-2.4); POTASSIUM 4.1 mmol/L (3.5-5.1); TOTAL BILIRUBIN 0.4 mg/dL (<0.1-1.0); TOTAL PROTEIN 5.3 g/dL (6.4-8.2)
[2021-05-22 05:54] LABS: PHOSPHORUS* 3.4 mg/dL (2.5-4.9)
[2021-05-22 09:14] LABS: ABSOLUTE LYMPHOCYTES 0.5 thou/uL (0.8-5.3); ABSOLUTE MONOCYTES 0.5 thou/uL (0.0-1.2); ABSOLUTE NEUTROPHILS 11.1 thou/uL (1.6-8.1); ANISOCYTOSIS 1+; PLATELET ESTIMATE INCREASED
--- NOTE | 2021-05-22 11:35 | EKG ---
[place] [address] ELECTROCARDIOGRAM REPORT Name: REMY GALVIN Room: [address] ADM IN .R.#: [id number] Admission: 05/19/21 Attend Phys: Cem Rivera Discharge: Date of : 52 Date of Service: 05/22/21626 Report #: [id number] THIS REPORT FOR: //name// [facility] Test Date: 2021-05-22 Test Time: 06:27:35 Pat Name: REMY GALVIN Department: Room: [address] Gender: M [employer]: : 1950 Requested By: Ty Tidwell Order Number: [id number] Aurelio MD: Ty Tidwell Measurements Intervals [place] Rate: 82 P: 59 DE: 160 QRS: 33 QRSD: 97 T: 67 QT: 415 QTc: 485 Interpretive Statements Sinus rhythm Low voltage, extremity and precordial leads Borderline prolonged QT interval Compared to ECG 05/19/2021 18:29:14 Sinus tachycardia no longer present Ventricular premature complex(es) no longer present T-wave abnormality no longer present Electronically Signed On 05-22-2021 11:35:07 ADMINISTRATIVE PROFESSIONAL by Ty Tidwell [email or web address] <ELECTRONICALLY SIGNED> By: Ty Tidwell MD, FAC 05/22/21 1135 0627 0627 Ty Tidwell MD, FAC /EPI
[2021-05-22 12:24] LABS: PCO2 41.7 mmHg (35.0-45.0); PO2 88.4 mmHg (75.0-100.0); pH 7.476 (7.340-7.450)
[2021-05-23] VITALS (14 sets, daily range): BP systolic 89–169; BP diastolic 48–91
[2021-05-23 04:31] LABS: ALBUMIN 1.8 g/dL (3.4-5.0); CALCIUM 8.3 mg/dL (8.5-10.1); CREATININE 1.1 mg/dL (0.6-1.3); MAGNESIUM 2.2 mg/dL (1.8-2.4); POTASSIUM 3.8 mmol/L (3.5-5.1); TOTAL BILIRUBIN 0.5 mg/dL (<0.1-1.0); TOTAL PROTEIN 5.6 g/dL (6.4-8.2)
[2021-05-23 04:37] LABS: ABSOLUTE LYMPHOCYTES 0.7 thou/uL (0.8-5.3); ABSOLUTE MONOCYTES 0.8 thou/uL (0.0-1.2); ABSOLUTE NEUTROPHILS 10.5 thou/uL (1.6-8.1); BASOPHILS 0.2 %; HEMATOCRIT 31.2 % (42.0-52.0); HEMOGLOBIN 9.9 gm/dL (14.0-18.0); LYMPHOCYTES 5.8 %; MCHC 31.6 g/dL (28.0-37.0); MCV 82.2 fL (80.0-100.0); MONOCYTES 6.8 %; MPV 7.3 fl. (7.2-11.1); NUCLEATED RBCS 0 /100WBC; PLATELET COUNT* 362 thou/uL (150-400); POLYS 87.2 %; RBC 3.79 mil/uL (4.50-6.00); RDW-CV 19.1 % (10.5-14.5); WBC 12.1 thou/uL (4.0-11.0)
[2021-05-23 19:28] LABS: CALCIUM 8.7 mg/dL (8.5-10.1); CREATININE 1.1 mg/dL (0.6-1.3)
[2021-05-24] VITALS: BP 154/74
[2021-05-24 04:00] VITALS: BP 137/72
[2021-05-24 04:50] LABS: ABSOLUTE BASOPHILS 0.1 thou/uL (0.0-0.2); ABSOLUTE EOSINOPHILS 0.1 thou/uL (0.0-0.7); ABSOLUTE MONOCYTES 0.8 thou/uL (0.0-1.2); ABSOLUTE NEUTROPHILS 10.5 thou/uL (1.6-8.1); BASOPHILS 0.9 %; EOSINOPHILS 0.8 %; HEMATOCRIT 29.9 % (42.0-52.0); HEMOGLOBIN 9.7 gm/dL (14.0-18.0); LYMPHOCYTES 7.7 %; MCH 26.6 pg (26.0-34.0); MCHC 32.3 g/dL (28.0-37.0); MCV 82.3 fL (80.0-100.0); MONOCYTES 6.1 %; MPV 7.3 fl. (7.2-11.1); NUCLEATED RBCS 0 /100WBC; PLATELET COUNT* 319 thou/uL (150-400); POLYS 84.5 %; RBC 3.63 mil/uL (4.50-6.00); RDW-CV 18.8 % (10.5-14.5); WBC 12.4 thou/uL (4.0-11.0)
[2021-05-24 05:04] LABS: ALBUMIN 2.1 g/dL (3.4-5.0); CALCIUM 8.6 mg/dL (8.5-10.1); CREATININE 1.1 mg/dL (0.6-1.3); MAGNESIUM 1.8 mg/dL (1.8-2.4); POTASSIUM 3.5 mmol/L (3.5-5.1); TOTAL BILIRUBIN 0.8 mg/dL (<0.1-1.0); TOTAL PROTEIN 5.5 g/dL (6.4-8.2)
[2021-05-24 11:56] VITALS: BP 132/77
[2021-05-24 15:41] VITALS: BP 87/43
[2021-05-24 21:04] VITALS: BP 95/59
[2021-05-24 21:36] LABS: URINE BILIRUBIN NEGATIVE (Negative); URINE BLOOD 2+ (Negative); URINE COLOR YELLOW; URINE GLUCOSE-RANDOM NEGATIVE (Negative); URINE KETONES TRACE (Negative); URINE LEUKOCYTES-REFLEX 1+ (Negative); URINE NITRITE-REFLEX NEGATIVE (Negative); URINE PROTEIN 1+ (Negative)
[2021-05-24 21:37] LABS: URINE CLARITY SL CLOUDY
[2021-05-24 21:58] LABS: BACTERIA-REFLEX >30 Many /HPF (None Seen); COARSE GRANULAR CASTS 0-3 Few /LPF (None Seen); FINE GRANULAR CASTS 0-3 Few /LPF (None Seen); MUCUS 4-6 Moderate strn/LPF (None Seen); SQUAMOUS 0-3 Few /LPF (0-3); URINE WBC-REFLEX >25 Many /HPF (0-5); WBC CLUMPS Few (None Seen)
[2021-05-24 22:05] LABS: CELLULAR CASTS 0-3 Few /LPF (None Seen); CRYSTALS None Seen /LPF (None Seen)
[2021-05-25 00:45] VITALS: BP 99/61
[2021-05-25 04:00] VITALS: BP 123/57
[2021-05-25 08:20] VITALS: BP 124/70
[2021-05-25 11:17] LABS: ABSOLUTE BASOPHILS 0.1 thou/uL (0.0-0.2); ABSOLUTE EOSINOPHILS 0.3 thou/uL (0.0-0.7); ABSOLUTE LYMPHOCYTES 1.1 thou/uL (0.8-5.3); ABSOLUTE MONOCYTES 0.8 thou/uL (0.0-1.2); ABSOLUTE NEUTROPHILS 10.7 thou/uL (1.6-8.1); BASOPHILS 0.8 %; EOSINOPHILS 2.1 %; HEMATOCRIT 30.1 % (42.0-52.0); HEMOGLOBIN 9.5 gm/dL (14.0-18.0); LYMPHOCYTES 8.3 %; MCH 26.2 pg (26.0-34.0); MCHC 31.7 g/dL (28.0-37.0); MCV 82.8 fL (80.0-100.0); MONOCYTES 6.3 %; MPV 8.5 fl. (7.2-11.1); NUCLEATED RBCS 0 /100WBC; PLATELET COUNT* 294 thou/uL (150-400); POLYS 82.5 %; RBC 3.63 mil/uL (4.50-6.00); RDW-CV 19.1 % (10.5-14.5)
[2021-05-25 19:31] VITALS: BP 102/50
[2021-05-25 19:45] VITALS: BP 88/53
[2021-05-25 22:30] VITALS: BP 100/51
[2021-05-26 00:21] VITALS: BP 109/64
[2021-05-26 04:38] VITALS: BP 116/51
[2021-05-26 08:00] VITALS: BP 113/49
[2021-05-26 12:00] VITALS: BP 121/45
[2021-05-26 21:50] VITALS: BP 84/44
[2021-05-27 02:11] VITALS: BP 100/57
[2021-05-27 06:10] VITALS: BP 107/50
[2021-05-27 08:00] VITALS: BP 98/54
[2021-05-27 12:00] VITALS: BP 117/67
[2021-05-27 16:00] VITALS: BP 108/90
[2021-05-27 20:00] VITALS: BP 111/60
[2021-05-28] VITALS (7 sets, daily range): BP systolic 91–122; BP diastolic 46–75
[2021-05-28] MEDS ORDERED: ZYVOX600 MG PO (09:16)
[2021-05-28] MEDS ORDERED: HYDROCODON-ACE1 EAC7 PO (09:22)
[2021-05-28] MEDS ORDERED: CEFPODOXIME PR200 M1 PO (09:33)
[2021-05-28] MEDS ORDERED: CIPRO500 M1 PO (09:33)
== END 2021-05-28 15:47 | disposition hospice, home (50) | DRG 871 ==
LOC: M.ERS 17:14 → M.TBA-ER 18:40 → M.ICU 18:40 → M.2W 05-23 21:27
PROVIDERS: Family Medicine; Internal Medicine; Internal Medicine Critical Care Medicine; Nurse Practitioner Family; Personal Emergency Response Attendant; ADMIT Internal Medicine; ATTEND Internal Medicine
PROC: 5A1945Z Respiratory Ventilation, 24-96 Consecutive Hours (ICD-10-PCS; principal; 2021-05-19)
PROC: 0BH17EZ Insertion of Endotracheal Airway into Trachea, Via Natural or Artificial Opening (ICD-10-PCS; principal; 2021-05-19)
PROC: 02HV33Z Insertion of Infusion Device into Superior Vena Cava, Percutaneous Approach (ICD-10-PCS; 2021-05-19)
PROC: B548ZZA Ultrasonography of Superior Vena Cava, Guidance (ICD-10-PCS; 2021-05-19)
DX: A41.9 Sepsis, unspecified organism (principal); J15.6 Pneumonia due to other Gram-negative bacteria; J96.21 Acute and chronic respiratory failure with hypoxia; L89.104 Pressure ulcer of unspecified part of back, stage 4; L89.204 Pressure ulcer of unspecified hip, stage 4; J69.0 Pneumonitis due to inhalation of food and vomit; R65.21 Severe sepsis with septic shock; N17.0 Acute kidney failure with tubular necrosis; M62.82 Rhabdomyolysis; L03.115 Cellulitis of right lower limb; I47.1 Supraventricular tachycardia; L03.116 Cellulitis of left lower limb; I13.0 Hypertensive heart and chronic kidney disease with heart failure and stage 1 through stage 4 chronic kidney disease, or unspecified chronic kidney disease; Z20.822 Contact with and (suspected) exposure to COVID-19; I50.9 Heart failure, unspecified; E11.649 Type 2 diabetes mellitus with hypoglycemia without coma; E66.9 Obesity, unspecified; D64.9 Anemia, unspecified; I87.8 Other specified disorders of veins; N18.2 Chronic kidney disease, stage 2 (mild); R91.1 Solitary pulmonary nodule; J43.9 Emphysema, unspecified; E11.22 Type 2 diabetes mellitus with diabetic chronic kidney disease; Z68.37 Body mass index [BMI] 37.0-37.9, adult; Z28.21 Immunization not carried out because of patient refusal